=== PATIENT | female | born 2000 ===

== ENCOUNTER 2021-07-06 11:00 | Outpatient (RCR) | payer OTHER, SELFPAY ==
[2021-06-17 12:53] VITALS: BMI 20.3
--- NOTE | 2021-06-17 13:20 | PC.ADMIT ---
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 Patient struggling with severe depression with passive SI having thoughts that she does not want to be here and per Intergrated Assessment thoughts where she wants to . Patient denied plans or intent to kill herself. No previous history of hospitalizations or Suicide Attempts. Patient has feelings of hopelessness along with reduced interest and no motivation to do things and has been isolating with no structure to her day. She is currently living with her aunt who is supportive and per assessment patients parents do not know that patient is seeking a medical leave from school. Patient has been using ETOH to cope with how she is feeling and reports use has increased within the last month d/t being bored. Patient reports drinking 4 days a week having 4-6 drinks with in a few hours. Denied history of blacking out or ETOH withdrawal sxs. Patient reports last drink was a few days ago. Per assessment triggers appear to be break up with boyfriend and continued grieving of her grandmother whom she was close to and supportive in her life. Patient is alert and orietned x4. Presents with depressed mood, blunted affect. Medications reconciled with patient and patient's pharmacy. Patient reports taking medications as prescribed. Adderall prescribed PRN.
--- NOTE | 2021-06-17 16:19 | HO.PS.ADMBH ---
[facility] Date of Service: 06/17/21 Chief Complaint: Major Depression Sources of Information: patient interviewed, chart reviewed and crisis/core team assessment reviewed HPI Guardianship: No Medical Problems Affecting Mental Status: No Narrative: Ms. Vasques is a 20-year-old single female, referred by her outpatient psychiatrist due to increased of depressive symptoms. Client reports that she has been suffering from depression over the past few years, but symptoms have escalated over the past month and a half. She reports a s precipitant to depressive symptoms as the loss of her grandmother in her senior year of high school. identifies a stressor as her boyfriend of 3 years breaking up with her 6 weeks ago. She is currently home from school (she is a senior in college), attempting to take a medical leave due to poor motivation, poor concentration, fatigue, difficulty completing school work due to depressive symptoms. Client endorses passive SI, no intent, no plan. She currently sees Dr. Arturo Rausch, psychiatrist, and states she has been working with him for several years. She states she does not currently have a therapist, although she would like to get one. She states that she did receive therapy in the past, but that it has been quite some time. Denies any type of history or symptoms of bipolar disorder. Reports she has never been hospitalized for psychiatry, has never participated in PHP or IOP. Med trials: Lexapro (had a breakdown, was not taking correctly) zoloft (sweating) Current medications are Prozac 60 mg, and Adderall 10 mg p.r.n.. She states that the Adderall is to help give her energy and to help focus, but she does not have a formal history of ADHD since childhood, but that the medication is fairly recent. reports she also has a script for propanolol 10 mg p.r.n., but that she has not used it much at all. Client was raised by her mother, who her stepfather when she was 3 years old. Her father was an alcoholic and has . She reports that she did not know him well. She describes her relationship with her mother and stepfather as supportive. met all developmental milestones as expected, graduated high school, and is currently a senior in college. She plans to take [employer] a TS and applied to law school. No siblings. She is currently staying with her aunt, as she has not told her mother that she is not in school. She has had increased episodes of alcohol use since the summer, and her aunt has expressed to her that she is concerned about her drinking patterns. She reports drinking 4-5 times per week, as she finds it helps lift her mood and also helps with boredom. Endorses depress if symptoms of lack of motivation, passive SI, hopelessness, helplessness, guilt, tearfulness at times, fatigue, poor concentration, poor self esteem. She is hoping to gain healthy coping skills while in PHP, in order to help manage her symptoms of depression and to explore her alcohol use. Past Psychiatric History: Therapy in past, no current therapist. Has outpatient psychiatrist, Arturo Rausch M.D. No IPLOC No PHP, no IOP Medical Evaluation Reviewed: Yes [facility] Medical History History of arm fracture Family History: Father: Alcohol use disorder, depression. . Grandmother: Severe depression, . Mother: Alcohol abuse (no formal diagnosis). Social History: Only child, raised by mother and stepfather. Met developmental milestones as expected. Graduated high school. Current senior in college with [employer] major. Plans to apply to law school. Currently seeking leave of absence from school for depression. Not currently employed. Substance History: Consumes alcohol 4-5 times weekly. Pre contemplative, last use 3 days ago.. Marijuana use occasionally. Trauma History: Denies, although states loss of her grandmother was traumatic. Diagnostics Vital Signs (24Hr): Body Mass Index 20.3 Meds/Allergies Allergies Allergies Allergy/AdvReac Type Severity Reaction Status Date / Time No Known Allergies Allergy Verified 06/17/21 12:52 Mental Status Exam Mental Status Exam Narrative: Well-developed, well-nourished female, in NAD. No evidence of any type of intoxication or withdrawals of substances/alcohol noted. No involuntary movements, motor activity was calm, posture within normal limits. Ambulation not observed. Patient Appearance: Well Grooomed, Fatigued and Appropriate Patient Orientation: Person, Place, Time and Situation Level of Consciousness: Awake, Appropriate and Alert Patient Behavior: Appropriate, Cooperative and Good Eye Contact Mood Description: Depressed and Anxious Affect Description: Appropriate, Depressed, Anxious, Flat and Sad Patient Cognition Impaired: No Ability to Follow Directions: Excellent Speech Pattern: Clear, Appropriate, Spontaneous Speech and Coherent Memory Description: Intact Hallucinations: None Delusions: Not Present Thought Process: Intact, Rumination and Linear Thought Content: positive for Intact, positive for Obsessional Thoughts (Reports intrusive thoughts over past 6 weeks, relates them to relationship ending and lack of friends.) and positive for Suicidal Ideation (passive, with no intent or plan) Depressive Symptoms: Increased Anxiety, Diff. Making Decisions, Difficulty Sleeping, Loss of Int. in Activity, Feelings of Worthlessness, Hopelessness, Isolating-Friends/Family, Feelings of Guilt, Increased Fatigue, Thoughts of /Suicide, Low Self Esteem and Difficulty Concentrating Judgement: Fair Telehealth Telehealth Location of provider rendering services: practice address Location of patient: address on file Patient Identification confirmed using: Name, : Yes Telehealth method: video Patient verbally consented to treatment: Yes Patient verbally consented to billing insurance company: Yes Patient informed of any privacy concerns related to visit: Yes Time spent with patient (mins): 45 Assessment & Plan Assessment & Plan (1) Major depressive disorder, recurrent severe without psychotic features: Status: Acute Code(s): F33.2 - Major depressive disorder, recurrent severe without psychotic features Assessment and Plan: Client reports ongoing depression over past several years. Has had several medication trials with SSRIs but stopped due to side effects. Currently receiving fluoxetine, dose has been increased to 60 mg 1 month ago. She reports she is not experiencing any side effects from Prozac at this time. She reports the Adderall was added in order to help with cognitive symptoms, but states she does not take it consistently. Willing to try adjunctive medication in order to help with depression. Also describes intrusive thoughts over the past 6 weeks, and is willing to trial a low dose atypical antipsychotic in order to help ease these symptoms. (2) Alcohol abuse, uncomplicated: Status: Acute Code(s): F10.10 - Alcohol abuse, uncomplicated Assessment and Plan: Client reports that she has consumed alcohol since high school. States her father was an alcoholic and has since . Patient states that over the past 6 weeks her alcohol consumption has increased, but she relates this due to self medicating to make herself feel better and also out of boredom. Education provided regarding alcohol use and its affects regarding depressive symptoms. Client appears to be in pre contemplative stage of change at this time, will continue to offer support and education. (3) Generalized anxiety disorder: Status: Acute Code(s): F41.1 - Generalized anxiety disorder Assessment and Plan: Client reports that she is not using propanolol, as she does not like the effect regarding her anxiety and side effects. She reports that her anxiety has increased significantly over the past 6 weeks, although she has had anxiety in the past. Requesting medication to help manage symptoms. Assessment and Plan: 1. Add Abilify 2 mg daily. 2. Add hydroxyzine 25 mg 4 times daily p.r.n./anxiety. 3. Continue to offer support and education regarding alcohol use/abuse. 4. Continue with other medications as prescribed by outpatient provider. 5. Follow-up as per protocol. Reason for continued partial hosp. stay Substantial Risk for: inability to function and med/psych decompensation Certification I certify that partial hospital treatment is medically necessary due to the symptoms and problems resulting from the patient's mental illness and the failure to treat the patient at the partial hospital level of care would likely result in the patient requiring inpatient psychiatric care which could not be prevented at a less intensive level of care.
--- NOTE | 2021-06-19 14:22 | PC.NURSE ---
I called and LM for pt. asking her to call back today or Tuesday re: how tx is going and aftercare plans.
--- NOTE | 2021-06-22 15:06 | PC.NURSE ---
Case opened in treatment team.
--- NOTE | 2021-06-23 15:37 | P.PNPSP_ITS ---
Subjective Subjective Date of Service: 06/23/21 Reason For Visit: Major Depression Guardianship: No Medical Problems Affecting Mental Status: No Interim History: Maral reports she has not yet started the abilify or vistaril. Reports she continues with dysphoric mood, but feels slightly better. Finding groups helpful. Reports feeling safe, denies SI at this time, no safety concern at this time. Medication Compliance: No Attending Groups: Yes Review of Systems Acute medical concerns: No Medical Review of Systems: unchanged Review of Systems Review of Systems Yes all other systems are reviewed and are negative Constitutional: Reports no additional constitutional complaints Mental Status Exam Mental Status Exam Narrative: Well-developed, well-nourished female, in NAD. No evidence of any type of intoxication or withdrawals of substances/alcohol noted. No involuntary movements, motor activity was calm, posture within normal limits. Ambulation not observed. Patient Appearance: Well Grooomed and Appropriate Patient Orientation: Person, Place, Time and Situation Level of Consciousness: Awake, Appropriate and Alert Patient Behavior: Appropriate, Cooperative and Good Eye Contact Mood Description: Depressed and Anxious Affect Description: Appropriate, Depressed and Flat Patient Cognition Impaired: No Ability to Follow Directions: Excellent Speech Pattern: Clear, Appropriate, Spontaneous Speech and Coherent Memory Description: Intact Hallucinations: None Delusions: Not Present Thought Process: Intact, Goal Oriented and Linear Thought Content: positive for Intact Depressive Symptoms: Increased Anxiety, Diff. Making Decisions, Difficulty Sleeping, Loss of Int. in Activity, Feelings of Worthlessness, Hopelessness, Feelings of Guilt, Increased Fatigue and Low Self Esteem Judgement: Fair Diagnostics Vital Signs (24Hr): Body Mass Index 20.3 Assessment & Plan Assessment & Plan (1) Generalized anxiety disorder: Status: Acute Code(s): F41.1 - Generalized anxiety disorder Assessment and Plan: Client continues with symptoms of anxiety, although she reports some improvement. She states that she met with her parents and told them what was going on with her regarding alcohol use, anxiety, depression. She states that they were supportive, and that this has removed a substantial amount of stress for her. She reports she has not started the Vistaril yet, as she plans to drink this weekend and does not want any complications. It was explained that rather than using alcohol to help manage anxiety symptoms, Vistaril is a safer alternative. She was encouraged to fill the script, and reconsider decision to drink, but may want to utilize prn Vistaril instead. (2) Alcohol abuse, uncomplicated: Status: Acute Code(s): F10.10 - Alcohol abuse, uncomplicated Assessment and Plan: Client states that she plans to drink over the . She states that it will be controlled, as she will be with family for , and then maybe with a friend over the weekend. We discussed risks of drinking, safety concerns. She stated that she understood, and will be mindful of the amount of alcohol she consumes. She states that she does not feel she has a problem, and will be able to control her intake. (3) Major depressive disorder, recurrent severe without psychotic features: Status: Acute Code(s): F33.2 - Major depressive disorder, recurrent severe without psychotic features Assessment and Plan: Client continues with dysphoric mood. She reports that she is finding groups helpful. She states that she is sad that her grandfather's now in a [place] [facility], she plans to visit him at some point on . Continues with prescribed fluoxetine. States she has not yet started the Abilify, as she plans to consume alcohol over holiday , and did not want to experience any side effects. States she plans to start taking Abilify and Vistaril on TuesdayJune 29. Assessment and Plan: 1. Client plans to continue with medications prescribed by outpatient provider. 2. She has not yet begun Abilify and hydroxyzine that was prescribed during initial visit while in this PHP, plans to start them on 06/29/21. 3. Continue to offer education, support and encouragement regarding alcohol use. 4. Follow-up as per protocol. Patient educated on: diagnosis, medication risk/benefits, substance abuse and therapeutic strategies Informed Consent: further education needed Reason for contiued partial hosp. stay Substantial Risk for: harm to self, inability to function and med/psych decompensation Certification I certify that partial hospital treatment is medically necessary due to the symptoms and problems resulting from the patient's mental illness and the failure to treat the patient at the partial hospital level of care would likely result in the patient requiring inpatient psychiatric care which could not be prevented at a less intensive level of care. I spent minutes with the patient and/or on the patient floor today, greater than?50% of which was spent counseling/coordinating care. Discharge Plan Discharge Attending provider: Erick Calloway Additional Instructions: Phone appointment for an intake at [facility] (physical location is [facility]) with Terra Taylor MA on , 07/02/21 at 11am. Terra is the sanitation worker hosing machinery, and Maral will be referred to another therapist for individual therapy following the intake. Medications: New aripiprazole [Abilify] 2 mg tablet 2 mg PO DAILY Qty: 7 RF: 0 hydroxyzine HCl 25 mg tablet 25 mg PO QID PRN (Reason: anxiety) Qty: 28 RF: 0 No Action dextroamphetamine-amphetamine [Adderall] 10 mg Tablet 10 mg PO DAILY PRN (Reason: ADHD) RF: 0 norethindrone ac-eth estradiol [Junel 08/20 (21)] 1-20 mg-mcg Tablet 1 tab PO DAILY RF: 0 fluoxetine [Prozac] 20 mg Capsule 60 mg PO DAILY RF: 0 Stand Alone Forms: Patient Portal Discharge page Telehealth Telehealth Location of provider rendering services: practice address Location of patient: address on file Patient Identification confirmed using: Name, : Yes Telehealth method: video Patient verbally consented to treatment: Yes Patient verbally consented to billing insurance company: Yes Patient informed of any privacy concerns related to visit: Yes Time spent with patient (mins): 20
--- NOTE | 2021-07-01 13:20 | P.PNPSP_ITS ---
Subjective Subjective Date of Service: 07/01/21 Reason For Visit: Major Depression Guardianship: No Medical Problems Affecting Mental Status: No Interim History: Maral describes her mood as ?okay, really neutral right now ?. Denies SI at this time. Reports ongoing dysphoric mood, anhedonia, lack of motivation. Reports poor appetite, describes sleep as ?okay ?. States that she wakes up during the night, but then is able to fall back asleep. Has not started Abilify, although reports she has picked it up from pharmacy. Has recently started p.r.n. hydroxyzine. Has not noticed any improvement with the p.r.n.. Medication Compliance: Intermittent Side effects from medications: No Attending Groups: Yes Review of Systems Acute medical concerns: No Medical Review of Systems: unchanged Review of Systems Review of Systems Yes all other systems are reviewed and are negative Constitutional: Reports no additional constitutional complaints Mental Status Exam Mental Status Exam Narrative: Well-developed, well-nourished female, in NAD. No involuntary movements, motor activity was calm, posture within normal limits. Ambulation not observed. Patient Appearance: Well Grooomed and Appropriate Patient Orientation: Person, Place, Time and Situation Level of Consciousness: Appropriate and Alert Patient Behavior: Appropriate, Cooperative and Good Eye Contact Mood Description: Depressed and Anxious Affect Description: Appropriate, Depressed and Flat Patient Cognition Impaired: No Ability to Follow Directions: Excellent Speech Pattern: Clear, Appropriate, Spontaneous Speech and Coherent Memory Description: Intact Hallucinations: None Delusions: Not Present Thought Process: Intact, Goal Oriented and Linear Thought Content: positive for Intact Depressive Symptoms: Increased Anxiety, Diff. Making Decisions, Difficulty Sleeping, Loss of Int. in Activity, Feelings of Worthlessness, Hopelessness, Feelings of Guilt, Increased Fatigue and Low Self Esteem Judgement: Fair Diagnostics Vital Signs (24Hr): BMI result Body Mass Index 20.3 Assessment & Plan Assessment & Plan (1) Major depressive disorder, recurrent severe without psychotic features: Status: Acute Code(s): F33.2 - Major depressive disorder, recurrent severe without psychotic features Assessment and Plan: Client reports continued dysphoric mood, no real improvement regarding depressive symptoms. Reports she has not started the Abilify that was ordered several weeks ago, but does state that she has picked it up from pharmacy. When questioned why she has not started the medication, she reports ?I will think about it some more ?. Maral denies any suicidal ideation at this time, no safety concerns at this time. (2) Alcohol abuse, uncomplicated: Status: Acute Code(s): F10.10 - Alcohol abuse, uncomplicated Assessment and Plan: Client did not discuss any recent alcohol use, or alcohol consumption patterns at all during encounter. (3) Generalized anxiety disorder: Status: Acute Code(s): F41.1 - Generalized anxiety disorder Assessment and Plan: Client reports that she has begun utilizing p.r.n. Vistaril. She states she does not really notice any type of improvement at this time, and states that she does not really experience high levels of anxiety except when she is at school. Assessment and Plan: 1. Continue to encourage Abilify as adjunctive medication for depression, address any educational needs as appropriate. 2. Follow-up as per protocol. Patient educated on: diagnosis and therapeutic strategies Informed Consent: understands Reason for contiued partial hosp. stay Substantial Risk for: harm to self, inability to function and med/psych decompensation Certification I certify that partial hospital treatment is medically necessary due to the symptoms and problems resulting from the patient's mental illness and the failure to treat the patient at the partial hospital level of care would likely result in the patient requiring inpatient psychiatric care which could not be prevented at a less intensive level of care. I spent minutes with the patient and/or on the patient floor today, greater than?50% of which was spent counseling/coordinating care. Discharge Plan Discharge Attending provider: Erick Calloway Additional Instructions: Phone appointment for an intake at [facility] (physical location is [facility]) with Terra Taylor MA on , 07/02/21 at 11am. Terra is the equipment maintenance tech, and Maral will be referred to another therapist for individual therapy following the intake. Medications: New aripiprazole [Abilify] 2 mg tablet 2 mg PO DAILY Qty: 7 RF: 0 hydroxyzine HCl 25 mg tablet 25 mg PO QID PRN (Reason: anxiety) Qty: 28 RF: 0 No Action dextroamphetamine-amphetamine [Adderall] 10 mg Tablet 10 mg PO DAILY PRN (Reason: ADHD) RF: 0 norethindrone ac-eth estradiol [Junel 08/20 (21)] 1-20 mg-mcg Tablet 1 tab PO DAILY RF: 0 fluoxetine [Prozac] 20 mg Capsule 60 mg PO DAILY RF: 0 Stand Alone Forms: Patient Portal Discharge page Telehealth Telehealth Location of provider rendering services: practice address Location of patient: address on file Patient Identification confirmed using: Name, : Yes Telehealth method: video Patient verbally consented to treatment: Yes Patient verbally consented to billing insurance company: Yes Patient informed of any privacy concerns related to visit: Yes Time spent with patient (mins): 15
--- NOTE | 2021-07-03 11:12 | PC.NURSE ---
I called and spoke to pt. She called out today stating she didn't sleep well last night. I asked about readiness for discharge on Tuesday, and about how she's doing emotionally. She said her intake went well at [facility] yesterday, and that she is emotionally prepared and ready for discharge. She said she does feel better overall.
--- NOTE | 2021-07-06 11:50 | PC.NURSE ---
Patient scheduled to discharge from the program today. Patient reports she feels, ok about discharge feeling, nervous . Patient denied SI. Has the crisis number if needed. Reviewed patient medications with patient. Patient reports she has not started Hydroxyzine or Abilify, medication education provided. Marely Sahu the prescriber is aware. Asked patient if she found a PCP. Patient stated her aunt found a PCP for her and she has an upcoming appointment however she does not remember the date of the appointment or the name of the PCP.
--- NOTE | 2021-07-06 15:51 | PC.NURSE ---
I called and left a message for Arturo Rausch MD, pt's med provider. I then called [facility] to see if they might give an initial appt for pt, as she has recently had her intake. I spoke to Radha. She said they are not able to give an appointment yet, but will reach out to pt this week with an appt time.
== END 2021-07-07 07:10 | disposition home or self-care (01) ==
LOC: HO.PHPA 11:00
PROVIDERS: Visit Provider Psychiatry & Neurology Psychiatry
DX: F33.2 Major depressive disorder, recurrent severe without psychotic features (principal); F41.1 Generalized anxiety disorder; F10.10 Alcohol abuse, uncomplicated; Z79.899 Other long term (current) drug therapy
CPT/HCPCS: 90791; 90853